=== PATIENT | female | born 1960 | race Caucasian/White ===

== ENCOUNTER 2020-02-25 09:22 | Outpatient (CLI) | payer OTHER ==
--- NOTE | 2020-02-25 10:22 | BD ---
DEXA BONE DENSITOMETRY: (Dual energy x-ray absorptiometry) DATE: 02/25/2020 HISTORY: 60-year old white female for age-related, post-menopausal, osteoporosis screening. Weight: 210 lbs Height: 65 in. Age of menopause: 49 COMPARISON: None available. FINDINGS: The bone mineral density (BMD) is given in grams per square centimeter (g/cm2): LUMBAR SPINE: BMD (g/cm^2) T score Z score L1: 0.718 -2.5 -1.2 L2: 0.877 -1.4 0.1 L3: 0.893 -1.7 -0.2 L4: 0.796 -2.4 -0.8 Total: 0.823 -2.0 -0.5 HIP: BMD (g/cm^2) T score Z score Femoral neck: 0.697 -1.4 0.0 Total: 0.889 -0.4 0.6 FRAX WHO fracture risk assessment tool: 10 year fracture risk* Major osteoporotic fracture: 7.2 % Hip fracture: 0.5 % Reported risk factors: [place] (), neck BMD = 0.697 (g/cm^2), BMI = 34.9. *Fracture probability is calculated for an untreated patient. Fracture probability may be lower if th e patient has received treatment. IMPRESSION: 1.) The mean bone mineral density of the lumbar spine is osteopenic. Fracture risk is increased. 2) The bone mineral density of the femoral neck is osteopenic. Fracture risk is increased.
--- NOTE | 2020-03-24 10:21 | MMO ---
Bilateral MAMMO Bilat Screen [facility]. CLINICAL HISTORY: Patient is 60 years old and is seen for screening. The patient has the following family history of breast cancer: mother, at age 56, malignant (generic). The patient has no personal history of cancer. The patient has a history of right needle biopsy in 1999 - benign - CYST, left needle biopsy in 2007 - benign and left Cyst Aspiration - benign - MANY IN THE PAST. VIEWS: The views performed were: bilateral craniocaudal with tomosynthesis and bilateral mediolateral oblique with tomosynthesis. FILMS COMPARED: No prior imaging studies are available for comparison. This study has been interpreted with the assistance of computer-aided detection. MAMMOGRAM FINDINGS: There are scattered fibroglandular densities. There are no suspicious masses, suspicious calcifications, or new areas of architectural distortion. IMPRESSION: THERE IS NO MAMMOGRAPHIC EVIDENCE OF MALIGNANCY. A ROUTINE FOLLOW-UP MAMMOGRAM IN 1 YEAR IS RECOMMENDED. THE RESULTS OF THIS EXAM WERE SENT TO THE PATIENT. ACR BI-RADS Category 1 - Negative MAMMOGRAPHY NOTE: 1. A negative mammogram report should not delay a biopsy if a dominant of clinically suspicious mass is present. 2. Approximately 10% to 15% of breast cancers are not detected by mammography. 3. Adenosis and dense breasts may obscure an underlying neoplasm. Reported by: DONN DONNELLY MD Electonically Signed: [id number]
== END 2020-02-25 09:23 | disposition home or self-care (01) ==
LOC: BICMAMMO 09:22
PROVIDERS: ATTEND Family Medicine
DX: Z12.31 Encounter for screening mammogram for malignant neoplasm of breast (principal); Z13.820 Encounter for screening for osteoporosis; M85.89 Other specified disorders of bone density and structure, multiple sites; Z80.3 Family history of malignant neoplasm of breast; Z91.89 Other specified personal risk factors, not elsewhere classified
CPT/HCPCS: 77063; 77067; 77080

== ENCOUNTER 2021-02-09 22:18 | Emergency (ER) | payer OTHER | END 2021-02-09 23:34 | disposition home or self-care (01) | LOC: ERS 22:18 | DX: J30.9 Allergic rhinitis, unspecified (principal); J32.1 Chronic frontal sinusitis; J32.0 Chronic maxillary sinusitis | CPT/HCPCS: 99281 ==

== ENCOUNTER 2024-02-04 18:03 | Emergency (ER) | payer BC ==
[2024-02-04] MEDS ORDERED: Fluorescein Opthalmic Strip ONE (18:12)
[2024-02-04] MEDS ORDERED: Proparacaine 0.5% Opth 15 ML BOT ONE (18:13)
== END 2024-02-04 18:50 | disposition home or self-care (01) ==
LOC: ERS 18:03
DX: S05.91XA Unspecified injury of right eye and orbit, initial encounter (principal); X10.2XXA Contact with fats and cooking oils, initial encounter; Y93.G3 Activity, cooking and baking
CPT/HCPCS: 99283

== ENCOUNTER 2024-03-31 13:03 | Outpatient (CLI) | payer BC | END 2024-03-31 13:04 | disposition home or self-care (01) | LOC: BICMAMMO 13:03 | PROVIDERS: ATTEND Physician Assistant | DX: N95.1 Menopausal and female climacteric states (principal); M85.89 Other specified disorders of bone density and structure, multiple sites | CPT/HCPCS: 77063; 77067; 77080 ==

== ENCOUNTER 2024-07-15 12:49 | Outpatient (CLI) | payer MEDICARE, OTHER | END 2024-07-15 12:50 | disposition home or self-care (01) | LOC: BICULT 12:49 | PROVIDERS: ATTEND Physician Assistant | DX: I65.23 Occlusion and stenosis of bilateral carotid arteries (principal) | CPT/HCPCS: 93880 ==